=== PATIENT | female | born 1990 | race American Indian/Alaskan Native ===

== ENCOUNTER 2018-01-06 19:14 | Emergency (ER) | payer SELFPAY ==
--- NOTE | 2018-01-07 00:33 | Emergency Department Report ---
ED Abdominal Pain HPI - General Chief Complaint: Back Pain/Injury Stated Complaint: finger nail mold Time Seen by Provider: 01/07/18 00:09 Source: patient Mode of arrival: Ambulatory Limitations: No Limitations - History of Present Illness Initial Comments: pt is a 27 y/o aaf who presents for abd pain x 6 months LMP 4 weeks ago, pain is 3/10 aching cramping, now with vaginal spotting that started 3 days ago. symptoms are excerbated by movement symptoms relieved by nothing. MD Complaint: abdominal pain Onset/Timin -: month(s) Location: suprapubic Radiation: bilateral flank Migration to: suprapubic Severity: moderate Severity scale (0 -10): 4 Quality: cramping, aching Consistency: intermittent Improves With: nothing Worsens With: nothing Associated Symptoms: other (vaginal spotting ) - Related Data LMP (females 10-50): 1 month Previous Rx's Medication Instructions Recorded Last Taken Type Albuterol Sulfate [Proventil HFA] 1 - 2 puff IH Q4H PRN #1 hfa.aer.ad 09/26/13 Unknown Rx Amoxicillin [Trimox CAP] 500 mg PO Q8H #30 capsule 09/26/13 Unknown Rx Promethazine /Codeine 5 ml PO Q6H PRN #120 ml 09/26/13 Unknown Rx [Phenergan/Codeine 6.25-10 mg/5 ml] Prednisone [Prednisone 5 mg (6-Day 5 mg PO .TAPER #1 tab.ds.pk 01/02/14 Unknown Rx Pack, 21 Tabs)] Cephalexin [Keflex] 500 mg PO TID #30 capsule 01/07/18 Unknown Rx Fluconazole [Diflucan TAB] 150 mg PO ONCE #1 tablet 01/07/18 Unknown Rx Ibuprofen 800 mg PO TID #30 tablet 01/07/18 Unknown Rx Allergies Allergy/AdvReac Type Severity Reaction Status Date / Time No Known Allergies Allergy Verified 01/06/18 19:23 ED Review of Systems ROS: Stated complaint: finger nail mold Other details as noted in HPI Constitutional: denies: chills, fever Eyes: denies: eye pain, eye discharge, vision change ENT: denies: ear pain, throat pain Respiratory: denies: cough, shortness of breath, wheezing Cardiovascular: denies: chest pain, palpitations Endocrine: no symptoms reported Gastrointestinal: abdominal pain. denies: nausea, diarrhea, constipation, hematemesis, melena, hematochezia Genitourinary: denies: urgency, dysuria, frequency, hematuria, discharge, other (vaginal spotting ) Musculoskeletal: denies: back pain, joint swelling, arthralgia Skin: as per HPI Neurological: denies: headache, weakness, paresthesias Psychiatric: denies: anxiety, depression Hematological/Lymphatic: denies: easy bleeding, easy bruising ED Past Medical Hx - Past Medical History Hx Asthma: Yes Additional medical history: asthma - Surgical History Past Surgical History?: No - Social History Smoking Status: Never Smoker Substance Use Type: None - Medications Home Medications: Home Medications Medication Instructions Recorded Confirmed Last Taken Type Albuterol Sulfate [Proventil HFA] 1 - 2 puff IH Q4H PRN #1 hfa.aer.ad 09/26/13 Unknown Rx Amoxicillin [Trimox CAP] 500 mg PO Q8H #30 capsule 09/26/13 Unknown Rx Promethazine /Codeine 5 ml PO Q6H PRN #120 ml 09/26/13 Unknown Rx [Phenergan/Codeine 6.25-10 mg/5 ml] Prednisone [Prednisone 5 mg (6-Day 5 mg PO .TAPER #1 tab.ds.pk 01/02/14 Unknown Rx Pack, 21 Tabs)] Cephalexin [Keflex] 500 mg PO TID #30 capsule 01/07/18 Unknown Rx Fluconazole [Diflucan TAB] 150 mg PO ONCE #1 tablet 01/07/18 Unknown Rx Ibuprofen 800 mg PO TID #30 tablet 01/07/18 Unknown Rx ED Physical Exam - General Limitations: No Limitations General appearance: alert, in no apparent distress - Head Head exam: Present: atraumatic, normocephalic - Eye Eye exam: Present: normal appearance - ENT ENT exam: Present: mucous membranes moist - Neck Neck exam: Present: normal inspection - Respiratory Respiratory exam: Present: normal lung sounds bilaterally. Absent: respiratory distress - Cardiovascular Cardiovascular Exam: Present: regular rate, normal rhythm. Absent: systolic murmur, diastolic murmur, rubs, gallop - GI/Abdominal GI/Abdominal exam: Present: soft, tenderness (superpubic ). Absent: guarding, rebound, bruit, hernia - Rectal Rectal exam: Present: deferred - Extremities Exam Extremities exam: Present: normal inspection - Back Exam Back exam: Present: normal inspection, full ROM. Absent: tenderness, CVA tenderness (R), CVA tenderness (L), muscle spasm, paraspinal tenderness, vertebral tenderness, rash noted - Neurological Exam Neurological exam: Present: alert, oriented X3 - Psychiatric Psychiatric exam: Present: normal affect, normal mood - Skin Skin exam: Present: warm, dry, intact, normal color. Absent: rash ED Course Vital Signs 01/06/18 19:23 Temperature 98.9 F Pulse Rate 68 Respiratory 16 Rate Blood Pressure 128/70 O2 Sat by Pulse 96 Oximetry ED Medical Decision Making - Lab Data Result diagrams: 01/07/18 00:18 01/07/18 00:18 Laboratory Tests 01/07/18 01/07/18 01/07/18:18 00:18 03:00 WBC 8.2 RBC 3.85 Hgb 12.9 Hct 37.1 MCV 97 MCH 34 H MCHC 35 H RDW 13.7 Plt Count 259 Lymph % (Auto) 42.1 H [place] % (Auto) 4.1 Eos % (Auto) 4.8 H Baso % (Auto) 0.5 Lymph # 3.5 [place] # 0.3 Eos # 0.4 Baso # 0.0 Seg Neutrophils % 48.5 Seg Neutrophils # 4.0 Sodium 141 Potassium 3.7 Chloride 102.0 Carbon Dioxide 27 Anion Gap 16 BUN 14 Creatinine 0.8 Estimated GFR > 60 BUN/Creatinine Ratio 18 Glucose 106 H Calcium 9.0 Total Bilirubin 0.20 AST 14 ALT 12 Alkaline Phosphatase 68 Total Protein 6.3 Albumin 4.1 Albumin/Globulin Ratio 1.9 Urine Color Yellow Urine Turbidity Slightly-cloudy Urine pH 6.0 Ur Specific [place] 1.029 Urine Protein 30 mg/dl Urine Glucose (UA) Neg Urine Ketones Neg Urine Blood Neg Urine Nitrite Neg Urine Bilirubin Neg Urine Urobilinogen 2.0 Ur Leukocyte Esterase Tr Urine WBC (Auto) 8.0 H Urine RBC (Auto) 5.0 U Epithel Cells (Auto) 7.0 Urine Mucus 3+ Urine HCG, Qual Negative - Medical Decision Making this is as UTI , plan: keflex 500 mg po Bid x 10 days, Ibuprofen 800 mg po tid prn pain , follow up wtih pcp in 2-3 days pt verbalized agreement and understanding of same. Critical care attestation.: If time is entered above; I have spent that time in minutes in the direct care of this critically ill patient, excluding procedure time. ED Disposition Clinical Impression: UTI (urinary tract infection) Qualifiers: Urinary tract infection type: acute cystitis Hematuria presence: without hematuria Qualified Code(s): N30.00 - Acute cystitis without hematuria Disposition: TO HOME OR SELFCARE Is pt being admited?: No Does the pt Need Aspirin: No Condition: Good Instructions: Urinary Tract Infection in Women (ED) Prescriptions: Cephalexin [Keflex] 500 mg PO TID #30 capsule Fluconazole [Diflucan TAB] 150 mg PO ONCE #1 tablet Ibuprofen 800 mg PO TID #30 tablet Referrals: [facility] [Outside] - 3-5 Days Forms: Work/School Release Form(ED) Time of Disposition: 03:40
[2018-01-07 00:36] LABS: Basophils % (Auto) 0.5 % (0.0-1.8); Eosinophils # (Auto) 0.4 K/mm3 (0.0-0.4); Eosinophils % (Auto) 4.8 % (0.0-4.3); Hematocrit 37.1 % (30.3-42.9); Hemoglobin 12.9 gm/dl (10.1-14.3); Lymphocytes # (Auto) 3.5 K/mm3 (1.2-5.4); Lymphocytes % (Auto) 42.1 % (13.4-35.0); Mean Corpuscular HGB Conc 35 % (30-34); Mean Corpuscular Hemoglobin 34 pg (28-32); Mean Corpuscular Volume 97 fl (79-97); Monocytes # (Auto) 0.3 K/mm3 (0.0-0.8); Monocytes % (Auto) 4.1 % (0.0-7.3); Platelet Count 259 K/mm3 (140-440); Red Blood Count 3.85 M/mm3 (3.65-5.03); Red Cell Distribution Width 13.7 % (13.2-15.2)
[2018-01-07 00:54] LABS: Alanine Aminotransferase 12 units/L (7-56); Albumin 4.1 g/dL (3.9-5); BUN/Creatinine Ratio 18; Blood Urea Nitrogen 14 mg/dL (7-17); Hemolysis Index 6
[2018-01-07 03:16] LABS: Bilirubin,Urine NEG (Negative); Blood,Urine NEG (Negative); Color,Urine Yellow (Yellow); Mucus,Urine 3+ /HPF
[2018-01-07 03:22] LABS: HCG Qualitative,Urine Negative (Negative)
[2018-01-07 03:58] LABS: Lipase 24 units/L (13-60)
[2018-01-07 04:10] VITALS: BP 101/62
== END 2018-01-07 04:09 | disposition home or self-care (01) ==
LOC: ED 19:14
DX: N30.00 Acute cystitis without hematuria (principal); J45.909 Unspecified asthma, uncomplicated; Z79.899 Other long term (current) drug therapy
CPT/HCPCS: 36415; 80053; 81001; 81025; 83690; 85025; 99283